=== PATIENT | male | born 1960 ===

== ENCOUNTER 2017-02-19 10:09 | Observation (INO) | payer MEDICAID ==
[2017-02-19 10:26] VITALS: BMI 26.6
[2017-02-19 10:43] VITALS: BP 150/89; PULSE 103; RESP 18; TEMP 98.2; O2SAT 98
--- NOTE | 2017-02-19 10:55 | ED PDOC ---
HPI: Psych/Substance Abuse Time Seen by Provider: 02/19/17 10:17 Chief Complaint (Nursing): Alcohol Ingestion Chief Complaint (Provider): Alcohol ingestion History Per: Patient History/Exam Limitations: no limitations Onset/Duration Of Symptoms: Persistent Current Symptoms Are (Timing): Still Present Suicide/Self Injury Attempted (Context): None Modifying Factor(s): Alcohol Severity: Moderate Associated Symptoms: denies: Suicidal Thoughts, Suicidal Plan Additional History Per: EMS Additional Complaint(s): The pt is a 56yo male, brought to the ED by EMS for evaluation s/p discovering pt publicly intoxicated. Pt admits to drinking alcohol today and offers no additional medical complaints. Past Medical History Reviewed: Historical Data, Nursing Documentation, Vital Signs Vital Signs: Last Vital Signs Temp 98.2 F 02/19/17 10:39 Pulse 103 H 02/19/17 10:39 Resp 18 02/19/17 10:39 BP 150/89 02/19/17 10:39 Pulse Ox 98 02/19/17 10:39 - Medical History PMH: No Chronic Diseases - Surgical History Surgical History: No Surg Hx - Family History Family History: States: Unknown Family Hx - Allergies Allergies/Adverse Reactions: Allergies Allergy/AdvReac Type Severity Reaction Status Date / Time Penicillins Allergy RASH Verified 02/19/17 10:25 Review of Systems ROS Statement: Except As Marked, All Systems Reviewed And Found Negative Psych: Positive for: Other (Etoh intoxication). Negative for: Suicidal ideation Physical Exam - Reviewed Nursing Documentation Reviewed: Yes Vital Signs Reviewed: Yes - Physical Exam Appears: Positive for: Well (alcohol on breath), Non-toxic, No Acute Distress Head Exam: Positive for: ATRAUMATIC, NORMAL INSPECTION, NORMOCEPHALIC Neurologic/Psych: Positive for: Alert, Oriented, Mood/Affect (alcohol on breath , slurred speech), Gait (unsteady) - ECG O2 Sat by Pulse Oximetry: 98 (RA) Pulse Ox Interpretation: Normal Medical Decision Making Medical Decision Making: Time: 1050 Impression: ETOH Intoxication Plan: * Glucose, blood, POC * Pt to be observed until clinically stable Scribe Attestation: Documented by Meaghan Sommers acting as a scribe for Kenneth Cox DO. Provider Attestation: All medical record entries made by the Scribe were at my direction and personally dictated by me. I have reviewed the chart and agree that the record accurately reflects my personal performance of the history, physical exam, medical decision making, and the department course for this patient. I have also personally directed, reviewed, and agree with the discharge instructions and disposition. ED OBSERVATION Date of observation admission: 02/19/17 Time of observation admission: 10:54 - Observation admission statement Patient is being placed in observation because:: Pt to be placed under observation due to alcohol intoxication. - Goals of Observation Goals of observation are:: Observed until pt is clinically sober. - Progress Note Progress Note: 02/19/17 10:57 Currently pt resting in room, vitals stable. 02/19/17 12:21 Pt asleep in room, vitals stable. 02/19/17 14:25 Pt awake and alert with steady gait. stable for discharge home. Disposition - Clinical Impression Clinical Impression: Alcohol abuse - Disposition Disposition: Routine/Home Disposition Time: 10:54 Condition: STABLE
== END 2017-02-19 14:30 | disposition home or self-care (01) ==
LOC: H.ER 10:09 → H.EROBSV 10:54
PROVIDERS: ADMIT Student in an Organized Health Care Education/Training Program; ATTEND Student in an Organized Health Care Education/Training Program
DX: F10.10 Alcohol abuse, uncomplicated (principal)

== ENCOUNTER 2017-07-11 22:17 | Observation (INO) | payer MEDICAID, OTHER ==
[2017-07-11 22:18] VITALS: BMI 26.6
[2017-07-11 22:22] VITALS: TEMP 98.7; O2SAT 99
--- NOTE | 2017-07-11 22:51 | ED PDOC ---
Upper Extremity Pain/Injury Time Seen by Provider: 07/11/17 22:38 Chief Complaint (Nursing): Upper Extremity Problem/Injury Chief Complaint (Provider): left shoulder pain History Per: Patient, EMS History/Exam Limitations: intoxication Additional History Per: Patient, EMS Additional Complaint(s): 57 y/o male brought in by EMS for eval of left shoulder injury sustained prior to arrival. Patient states he had "a few drinks", fell down approximately 5 stairs and landed on left shoulder. Patient unsure if he hit his head. Denies headache, dizziness, vomiting, extremity numbness, neck/back pain, chest pain, abdominal pain. Past Medical History Reviewed: Historical Data, Nursing Documentation, Vital Signs Vital Signs: Last Vital Signs Temp 98.7 F 07/11/17 22:19 Pulse 81 07/11/17 22:19 Resp 18 07/11/17 22:19 BP 160/89 H 07/11/17 22:19 Pulse Ox 99 07/11/17 22:19 - Medical History PMH: Benign Prostatic Hyperplasia - Surgical History Surgical History: No Surg Hx - Family History Family History: States: Unknown Family Hx - Home Medications Home Medications: Ambulatory Orders Medication Instructions Recorded traMADol [Ultram] 50 mg PO Q8 PRN #12 tab 07/12/17 - Allergies Allergies/Adverse Reactions: Allergies Allergy/AdvReac Type Severity Reaction Status Date / Time Penicillins Allergy RASH Verified 07/11/17 22:19 Review of Systems ROS Statement: Except As Marked, All Systems Reviewed And Found Negative Musculoskeletal: Positive for: Shoulder Pain Physical Exam - Reviewed Nursing Documentation Reviewed: Yes Vital Signs Reviewed: Yes - Physical Exam Appears: Positive for: Well, Non-toxic, Uncomfortable Head Exam: Positive for: ATRAUMATIC, NORMAL INSPECTION, NORMOCEPHALIC Skin: Positive for: Normal Color Eye Exam: Positive for: Normal appearance ENT: Positive for: Normal ENT Inspection Cardiovascular/Chest: Positive for: Regular Rate, Rhythm Respiratory: Positive for: Normal Breath Sounds Pulses-Radial (L): 2+ Pulses-Radial (R): 2+ Gastrointestinal/Abdominal: Positive for: Normal Exam Back: Positive for: Normal Inspection Extremity: Positive for: Capillary Refill (<2 sec bilateral upper extremities), Deformity (left proximal humerus. Distal NV, motor intact). Negative for: Normal ROM (limited ROM left upper extremity due to pain left upper arm) Neurologic/Psych: Positive for: Alert, Oriented - Laboratory Results Result Diagrams: 07/11/17 22:48 07/11/17 23:05 - ECG O2 Sat by Pulse Oximetry: 99 - Other Rad xray left shoulder X-Ray: Viewed By Me X-Ray Interpretation: no acute findings xray left humerus X-Ray: Viewed By Me X-Ray Interpretation: + proximal fracture - Progress ED Course And Treament: labs, CT head, CT cspine, left shoulder xray, left humerus xray, IV morphine EXAM: CT Head Without Intravenous Contrast CLINICAL HISTORY: 57 years old, male; Injury or trauma; Fall; Initial encounter; Concussion / head injury; Consciousness not specified; Additional info: ETOH, fall TECHNIQUE: Axial computed tomography images of the head/brain without intravenous contrast. All CT scans at this facility use one or more dose reduction techniques, viz.: automated exposure control; ma/kV adjustment per patient size (including targeted exams where dose is matched to indication; i.e. head); or iterative reconstruction technique. Coronal and sagittal reformatted images were created and reviewed. COMPARISON: No relevant prior studies available. FINDINGS: Brain: No acute intracranial hemorrhage. Age- advanced periventricular white matter disease. No edema. Ventricles: Age- advanced ventriculomegaly. Bones: No acute displaced fracture. Sinuses: Unremarkable as visualized. No acute sinusitis. Mastoid air cells: Unremarkable as visualized. No mastoid effusion. IMPRESSION: No acute intracranial hemorrhage, or suspicious mass effect. EXAM: CT Cervical Spine Without Intravenous Contrast CLINICAL HISTORY: 57 years old, male; Injury or trauma; Fall; Initial encounter; Blunt trauma; Additional info: ETOH, fall TECHNIQUE: Axial computed tomography images of the cervical spine without intravenous contrast. All CT scans at this facility use one or more dose reduction techniques, viz.: automated exposure control; ma/kV adjustment per patient size (including targeted exams where dose is matched to indication; i.e. head); or iterative reconstruction technique. Coronal and sagittal reformatted images were created and reviewed. COMPARISON: No relevant prior studies available. FINDINGS: Vertebrae: No acute fracture. Alignment: Preservation of the normal curvature of the cervical spine. Discs/spinal canal/neural foramina: Degenerative disease is identified, with osteophyte formation and disc space narrowing. Thickening of the transverse ligament is suspected with accompanying synovial hypertrophy. Soft tissues: Symmetric Lung apices: The visualized lung apices are clear. IMPRESSION: Degenerative disease, without acute fracture. ED OBSERVATION Date of observation admission: 07/12/17 Time of observation admission: 01:00 - Goals of Observation Goals of Observation: Clinical sobriety - Progress Note Progress Note: 07/12/17 1:30 Patient placed in left coaptation splint/sling by auto technician mechanic. Patient NV intact post splint application. 07/12/17 3:00 Patient sleeping; no distress 07/12/17 4:30 Patient sleeping; no distress 6:00 patient awake, alert, oriented x3. Ambulating steady gait Advised ROSE MARY. Follow up ortho. Rx tramadol given. Return to ED for worsening/concerning symptoms. Disposition - Clinical Impression Clinical Impression: Alcohol abuse, Arm fracture, left Counseled Patient/Family Regarding: Studies Performed, Diagnosis, Need For Followup, Rx Given - Disposition Disposition: Routine/Home Disposition Time: 06:00 Condition: STABLE
[2017-07-11 23:09] LABS: BASO # 0.1 K/uL (0.0-0.2); BASO % 1.5 % (0.0-2.0); EOS # 0.1 K/uL (0.0-0.7); EOS % 1.6 % (0.0-4.0); HEMATOCRIT 45.5 % (35.0-51.0); LYMPH # 2.1 K/uL (1.0-4.3); LYMPH % 30.7 % (20.0-40.0); MEAN CELL VOLUME 101.1 fl (80.0-94.0); MEAN CORPUSCULAR HEMOGLOBIN 33.8 pg (27.0-31.0); MEAN CORPUSCULAR HGB CONC 33.5 g/dL (33.0-37.0); MEAN PLATELET VOLUME 7.2 fl (7.2-11.7); MONO # 0.5 K/uL (0.0-0.8); MONO % 7.4 % (0.0-10.0); NEUT % 58.8 % (50.0-75.0); NRBC % 0.1 % (0.0-0.0); WHITE BLOOD COUNT 6.7 K/uL (4.8-10.8)
--- NOTE | 2017-07-11 23:39 | CT ---
EXAM: CT Head Without Intravenous Contrast CLINICAL HISTORY: 57 years old, male; Injury or trauma; Fall; Initial encounter; Concussion / head injury; Consciousness not specified; Additional info: ETOH, fall TECHNIQUE: Axial computed tomography images of the head/brain without intravenous contrast. All CT scans at this facility use one or more dose reduction techniques, viz.: automated exposure control; ma/kV adjustment per patient size (including targeted exams where dose is matched to indication; i.e. head); or iterative reconstruction technique. Coronal and sagittal reformatted images were created and reviewed. COMPARISON: No relevant prior studies available. FINDINGS: Brain: No acute intracranial hemorrhage. Age- advanced periventricular white matter disease. No edema. Ventricles: Age- advanced ventriculomegaly. Bones: No acute displaced fracture. Sinuses: Unremarkable as visualized. No acute sinusitis. Mastoid air cells: Unremarkable as visualized. No mastoid effusion. IMPRESSION: No acute intracranial hemorrhage, or suspicious mass effect.
[2017-07-11 23:40] LABS: ALB/GLOB RATIO 1.8 (1.0-2.1); ALKALINE PHOSPHATASE 84 U/L (38-126); ALT/SGPT 141 U/L (21-72); AST/SGOT 102 U/L (17-59); BILIRUBIN,TOTAL 0.4 mg/dl (0.2-1.3); BLOOD UREA NITROGEN 7 mg/dl (9-20); CALCIUM 9.9 mg/dL (8.4-10.2); CARBON DIOXIDE 23 mmol/L (22-30); CHLORIDE 110 mmol/L (98-107); GFR AFRICAN-AMERICAN > 60; GLUCOSE,RANDOM 104 mg/dL (75-110); POTASSIUM 3.7 MMOL/L (3.6-5.0); SODIUM 152 mmol/l (132-148); TOTAL PROTEIN 7.5 G/DL (6.3-8.2)
--- NOTE | 2017-07-11 23:41 | CT ---
EXAM: CT Cervical Spine Without Intravenous Contrast CLINICAL HISTORY: 57 years old, male; Injury or trauma; Fall; Initial encounter; Blunt trauma; Additional info: ETOH, fall TECHNIQUE: Axial computed tomography images of the cervical spine without intravenous contrast. All CT scans at this facility use one or more dose reduction techniques, viz.: automated exposure control; ma/kV adjustment per patient size (including targeted exams where dose is matched to indication; i.e. head); or iterative reconstruction technique. Coronal and sagittal reformatted images were created and reviewed. COMPARISON: No relevant prior studies available. FINDINGS: Vertebrae: No acute fracture. Alignment: Preservation of the normal curvature of the cervical spine. Discs/spinal canal/neural foramina: Degenerative disease is identified, with osteophyte formation and disc space narrowing. Thickening of the transverse ligament is suspected with accompanying synovial hypertrophy. Soft tissues: Symmetric Lung apices: The visualized lung apices are clear. IMPRESSION: Degenerative disease, without acute fracture.
[2017-07-12 00:47] LABS: ALCOHOL SERUM 352 mg/dl (0-10)
[2017-07-12 06:03] VITALS: BP 141/76; PULSE 72; RESP 16
--- NOTE | 2017-07-12 12:06 | RAD ---
PROCEDURE: Radiographs of the Left Shoulder HISTORY: ETOH, fall COMPARISON: No prior. FINDINGS: BONES: There is an acute displaced impacted fracture in the proximal metaphysis of the humerus with 1 cortex width lateral displacement. Bone alignment and mineralization are normal. JOINTS: Normal. Glenohumeral and acromioclavicular joints preserved. No osteoarthritis. SOFT TISSUES: Normal. OTHER FINDINGS: None. IMPRESSION: Acute displaced impacted fracture in the proximal metaphysis of the humerus with 1 cortex width lateral displacement.
--- NOTE | 2017-07-12 12:08 | RAD ---
PROCEDURE: Radiographs of the left humerus. HISTORY: etoh, fall COMPARISON: None. FINDINGS: BONES: There is an acute displaced impacted fracture in the proximal metaphysis of the humerus with 1/2 shaft with medial displacement. SOFT TISSUES: Normal. OTHER FINDINGS: None. IMPRESSION: Acute displaced impacted fracture in the proximal metaphysis of humerus with 1 of shaft with medial displacement.
== END 2017-07-12 06:21 | disposition home or self-care (01) ==
LOC: H.ER 22:17 → H.EROBSV 07-12 01:00
PROVIDERS: ADMIT Emergency Medicine; ATTEND Emergency Medicine
DX: F10.129 Alcohol abuse with intoxication, unspecified (principal); Y90.8 Blood alcohol level of 240 mg/100 ml or more; N40.0 Benign prostatic hyperplasia without lower urinary tract symptoms; Z88.0 Allergy status to penicillin; S42.202A Unspecified fracture of upper end of left humerus, initial encounter for closed fracture; W10.9XXA Fall (on) (from) unspecified stairs and steps, initial encounter; Y93.9 Activity, unspecified; Y92.9 Unspecified place or not applicable
CPT/HCPCS: 70450; 72125; 73030; 73060; 80053; 80320; 82948; 85025; 99283; G0378; J2270

== ENCOUNTER 2018-06-07 10:44 | Day surgery (SDC) | payer OTHER ==
[2018-06-07] MEDS ORDERED: Lactated Ringer's 500 ML IV ONE (11:42)
[2018-06-07] MEDS ORDERED: Propofol 10 mg/ml Inj (20 ML) ONE (12:27)
[2018-06-07 13:40] VITALS: TEMP 97.5; O2SAT 99
[2018-06-07 13:53] VITALS: BP 135/72; PULSE 60; RESP 14
== END 2018-06-07 14:02 | disposition home or self-care (01) ==
LOC: H.ENDO 10:44
PROVIDERS: ATTEND Internal Medicine Gastroenterology
DX: K29.50 Unspecified chronic gastritis without bleeding (principal); K31.89 Other diseases of stomach and duodenum; R12 Heartburn; R10.13 Epigastric pain; Z86.010 Personal history of colon polyps
CPT/HCPCS: 43239; 88305; J2001; J2704; J7120

== ENCOUNTER 2018-06-21 10:32 | Day surgery (SDC) | payer OTHER ==
[2018-06-21] MEDS ORDERED: Lactated Ringer's 500 ML IV ONE (11:31)
[2018-06-21 11:35] VITALS: BMI 22.6
[2018-06-21] MEDS ORDERED: Propofol 10 mg/ml Inj (20 ML) ONE (12:40)
[2018-06-21 13:57] VITALS: TEMP 97; O2SAT 100
[2018-06-21 14:12] VITALS: BP 124/76; PULSE 70; RESP 16
== END 2018-06-21 14:15 | disposition home or self-care (01) ==
LOC: H.ENDO 10:32
PROVIDERS: ATTEND Internal Medicine Gastroenterology
DX: Z86.010 Personal history of colon polyps (principal); D12.5 Benign neoplasm of sigmoid colon; K57.30 Diverticulosis of large intestine without perforation or abscess without bleeding; D12.4 Benign neoplasm of descending colon
CPT/HCPCS: 45380; 88305; J2001; J2704; J7120